=== PATIENT | male | born 1985 | race Caucasian/White ===

== ENCOUNTER → 2016-08-27 | Outpatient (CLI) | payer OTHER ==
[~2016-08-27] MED LIST: AMOX500T PO; BIAX500T PO; DOCU10ELUD PO; EQ O20TA4 PO; MOM30SS PO; MYLASS PO; OMEP20CA3 PO; OXYC-208 PO; REGL10TA6 PO; TYLE325T5 PO; no home meds
--- NOTE | 2016-08-27 12:36 | REP ---
Left ankle series: Four views. History: Acute left ankle pain. Findings: Four views of the left ankle demonstrate overall normal bone mineral density. There is a small bone island in the medial talus. Ankle mortise is intact. No fracture is seen. Impression: No acute bony abnormality. Signed by Shlomo Dickerson MD 08/27/2016 12:45 P
== END ==
LOC: M LRY 11:42
PROVIDERS: ATTEND Physician Assistant
DX: M25.572 Pain in left ankle and joints of left foot (principal)

== ENCOUNTER 2020-04-10 12:29 | Inpatient (IN) | payer OTHER ==
[~2020-04-10] VITALS: Ht 172.7 cm; Wt 62.4 kg
[~2020-04-10 12:29] MED LIST changes: -DOCU10ELUD PO; +DOCU5LIQ PO
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
[2020-04-10] MEDS ORDERED: methylPREDNISolone 125MG 2ML VIAL IV ONE (13:45)
[2020-04-10] MEDS ORDERED: NS 1,000 ML IV ONE (13:45)
[2020-04-10] MEDS: COMBIVENT RESPIMAT 100-20MCG INHALER 4GM INH SCH ×3 (13:55→14:14)
[2020-04-10 14:25] LABS: BASO # 0.1 10^3/uL (0.0-0.2); BASO % 1.2 % (0.0-1.0); EOS # 1.8 10^3/uL (0.0-0.5); EOS % 19.4 % (0.0-3.0); HEMATOCRIT 50.6 % (42.0-52.0); HEMOGLOBIN 17.4 g/dl (13.5-17.5); LYMPH # 1.1 10^3/uL (1.5-5.0); LYMPH % 12.1 % (24.0-44.0); MEAN CORPUSCULAR HEMOGLOBIN 34.2 pg (27.0-33.0); MEAN CORPUSCULAR HGB CONC 34.4 g/dl (32.0-36.5); MEAN CORPUSCULAR VOLUME 99.4 fl (80.0-96.0); MONO # 1.1 10^3/uL (0.0-0.8); MONO % 12.5 % (0.0-5.0); NEUTROPHILS % 54.6 % (36.0-66.0); PLATELET COUNT, AUTOMATED 257 10^3/uL (150-450); RED BLOOD COUNT 5.09 10^6/uL (4.30-6.10); WHITE BLOOD COUNT 9.1 10^3/uL (4.0-10.0)
[2020-04-10 14:29] LABS: VENOUS HCO3 22.7 MEQ/L (23.0-27.0); VENOUS O2 SATURATION 98.3 % (60.0-80.0); VENOUS PARTIAL PRESSURE CO2 38.9 mmHg (38.0-50.0); VENOUS PARTIAL PRESSURE O2 110.1 mmHg (30.0-50.0); VENOUS PH 7.384 UNITS (7.330-7.430); VENOUS STANDARD HCO3 22.9 MEQ/L; VENOUS TOTAL CO2 23.9 MEQ/L (24.0-28.0)
[2020-04-10 14:40] LABS: PROTHROMBIN TIME 13.4 SECONDS (12.5-14.3)
--- NOTE | 2020-04-10 14:41 | REP ---
INDICATION: DYSPNEA/COUGH. COMPARISON: Comparison chest x-ray 10/29/2012. TECHNIQUE: Portable upright AP chest radiograph. FINDINGS: The lungs are well inflated and free of infiltrate. Pleural angles are sharp. Heart size is normal. Pulmonary vasculature is not increased. IMPRESSION: No active disease. <Electronically signed by Eduin Dickerson > 04/10/20 [id number]
[2020-04-10 14:45] LABS: D-DIMER QUANT < 270 ng/ml (<500)
[2020-04-10 14:58] LABS: ALBUMIN 4.4 GM/DL (3.2-5.2); BILIRUBIN,DIRECT 0.2 MG/DL (0.0-0.2); BILIRUBIN,TOTAL 0.5 MG/DL (0.2-1.0); TOTAL PROTEIN 9.1 GM/DL (6.4-8.2)
[2020-04-10] MEDS ORDERED: ISOVUE-370 76% 100ML VIAL As Ordered ONE (15:45)
--- NOTE | 2020-04-10 16:28 | REP ---
INDICATION: sob/low sats. COMPARISON: 08/21/2014 in noncontrast enhanced chest CT TECHNIQUE: CT angiography of the pulmonary arteries after the intravenous administration of 100 cc Isovue 370 FINDINGS: There is excellent visualization of the pulmonary arterial vasculature. No focal filling defects are present that would be considered consistent with acute pulmonary emboli. There is no mediastinal or hilar adenopathy. There are no pleural or pericardial effusions. The imaged upper abdomen and imaged osseous structures are within normal limits. The thoracic aorta is within normal limits. Evaluation the lung shahid shows evidence of mild peribronchiolar wall thickening and a new 1.5 cm sized wedge shaped opacity at the level of the proximal bronchus intermedius and having air bronchograms. This represents a change from the prior CT. Filling defects are seen in multiple bronchioles bilaterally and within the left mainstem bronchus consistent with mucoid debris. IMPRESSION: 1. There is no evidence of a pulmonary embolus or thoracic aortic abnormality. 2. Peribronchiolar wall thickening consistent with reactive airway disease and seen in conjunction with mucoid debris as described above. 3. Right hilar wedge-shaped opacity with air bronchograms having the appearance of a focal area of consolidation possibly secondary to inflammation or atelectasis from mucous plugging. This needs to be correlated clinically with appropriate follow-up. <Electronically signed by Rogelio Blanchard > 04/10/20 0104
--- NOTE | 2020-04-10 18:24 | HPEPDOC ---
General Date of Admission Apr 10, 2020 Date of Service: Apr 10, 2020 Chief Complaint The patient is a 35-year-old male admitted with a reason for visit of dyspnea with thick sputum production Source: Patient History of Present Illness Mr. Erazo is a 35 year old male with remote history of asthma who presents with worsening dyspnea and thick sputum production. He had an exacerbation of asthma as a child, but has not had any problems until 4 months ago. He borrowed his friend's albuterol which initially controlled his symptoms. As of late, he started have worsening dyspnea on exertion. When he went hunting, he could only walk 20ft before feeling dyspnea and having to return. Today, he woke up feeling that he could not breath. He had 6 to 7 puffs of albuterol without effect. He decided to come to the ED to be checked out. While in the ED, work up with significant for eosinophilia. Eosinophils is 19.4%. Absolute eosinophils is 1.8. CTA chest was negative for PE, but demonstrated mucus plugging. He was given 3 rounds of breathing treatments and solumedrol 125mg without good effect. He was saturating around 92 while at room air, and saturated at 88 with ambulation. Admission was called. When I saw the patient, he was in mild distress. He was still very wheezy on auscultation. 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 Home Medications Scheduled PRN Omeprazole (Eq Omeprazole) 20 Mg Tab, 20 MG PO PRN PRN for GI UPSET, (Reported) Allergies Coded Allergies: No Known Allergies (Unverified , 04/10/20) Past Medical History Medical History 1. Asthma 2. Seasonal allergies Surgical History 1. Perforated antral ulcer, s/p ex lap with omental patch repair of perforated ulcer Family History Father: 2 years ago. History of COPD Mother: Alive. Unknown medical history Social History * Smoker: Denies, chew (tobacco) Alcohol: other (Drinks about 3 to 4 beers a day) Drugs: denies A-FIB/CHADSVASC A-FIB History Current/History of A-Fib/PAF?: No Review of Systems Constitutional: Denies: Chills, Fever Eyes: Denies: Vision change ENT: Denies: Sore Throat Skin: Reports: Rash (Dry skin around nose) Pulmonary: Reports: Dyspnea, Cough (Thick white sputum) Cardiovascular: Denies: Chest Pain Gastrointestinal: Denies: Nausea, Abdominal Pain Genitourinary: Denies: Dysuria Hematologic: Denies: Bruising Neurological: Denies: Weakness, Numbness Physical Examination General Exam: Positive: Alert, Cooperative, Mild Distress Eye Exam: Positive: EOMI; Negative: Sclera icteric ENT Exam: Positive: Atraumatic Neck Exam: Positive: Supple Chest Exam: Positive: Wheezing (Severe) Heart Exam: Positive: Tachycardic, Regular Rhythm Abdomen Exam: Positive: Normal bowel sounds, Soft; Negative: Tenderness Extremity Exam: Negative: Edema Neuro Exam: Positive: Cranial Nerves 3-12 NL Psych Exam: Positive: Mental status NL, Mood NL Vital Signs Vital Signs Date Time Temp Pulse Resp B/P (MAP) Pulse Ox O2 Delivery O2 Flow Rate FiO2 04/10/20 17:47 97.5 105 20 134/94 (107) 95 Nasal Cannula 2.0 Laboratory Data Labs 24H Laboratory Tests 2 04/10/20 14:14: Immature Granulocyte % (Auto) 0.2, Neutrophils (%) (Auto) 54.6, Lymphocytes (%) (Auto) 12.1L, Monocytes (%) (Auto) 12.5H, Eosinophils (%) (Auto) 19.4H, Basophils (%) (Auto) 1.2H, Neutrophils # (Auto) 5.0, Lymphocytes # (Auto) 1.1L, Monocytes # (Auto) 1.1H, Eosinophils # (Auto) 1.8H, Basophils # (Auto) 0.1, Nucleated Red Blood Cells % (auto) 0.0, Prothrombin Time 13.4, Prothromb Time International Ratio 1.00, D-Dimer, Quantitative < 270, Blood Gas Bicarbonate Sta ndard 22.9, Venous Blood pH 7.384, Venous Blood Partial Pressure CO2 38.9, Venous Blood Partial Pressure O2 110.1H, Venous Blood Total Carbon Dioxide 23.9L, Venous Blood HCO3 22.7L, Venous Blood Oxygen Saturation 98.3H, Venous Blood Base Excess -2.0, Lactic Acid Level 2.3*H, Total Bilirubin 0.5, Direct Bilirubin 0.2, Aspartate Amino Transf (AST/SGOT) 45H, Alanine Aminotransferase (ALT/SGPT) 46, Alkaline Phosphatase 79, Total Protein 9.1H, Albumin 4.4, Albumin/Globulin Ratio 0.9 1/29/21 14:26: POC Glucose (Misc Panel) 112H, POC Sodium (Misc Panel) 137, POC Potassium (Misc Panel) 4.2, POC Chloride (Misc Panel) 102, POC Total CO2 (Misc Panel) 27.0, POC Blood Urea Nitrogen (Misc Panel 4L, POC Ionized Calcium (Misc Panel) 4.9, POC Creatinine (Misc Panel) 0.8, POC Hematocrit (Misc Panel) 54.0H CBC/BMP Laboratory Tests 04/10/20 14:14 Microbiology Microbiology 04/10/20 Blood Culture, Received Pending 04/10/20 Respiratory Virus Panel (PCR) ([facility]) - Final, Complete 04/10/20 Blood Culture, Received Pending Assessment/Plan Mr. Erazo is a 35 year old male with remote history of asthma who presents with worsening dyspnea and thick sputum production. He was given breathing tr eatment and systemic steroids, but has been resistant to therapy. Work up suggests eosinophilic asthma and mucus plugging. Consulted pulmonology regarding eosinophilic asthma and mucus plugging, recommendations appreciated. Plan / VTE VTE Prophylaxis Ordered?: Yes Plan Plan 1. Eosinophilic asthma -Absolute eosinophils 1.8 (19.4%) -Hypoxic with ambulation -Persistent wheezing despite breathing treatments and steroids -Scheduled duonebs and solumdrol -Pulm consulted for tomorrow, recommendations appreciated 2. Mucus plugging -Demonstrated on CTA chest -Mucinex and acapella -Pulm consulted for tomorrow, recommendations appreciated 3. Alcohol use -Drinks about 3 to 4 beers daily -Thiamine, folic acid, and multivitamin -Monitor 4. DVT ppx -Lovenox CLIFFORD KOO DO Apr 10, 2020 18:24
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
[2020-04-10] MEDS: MULTIVITAMINS/MINERALS THERAP 1 TAB PO SCH (18:59)
[2020-04-10] MEDS: THIAMINE 100 MG TAB PO SCH (18:59)
[2020-04-10] MEDS: FOLIC ACID 1 MG TAB PO SCH (18:59)
[2020-04-10] MEDS: IPRATROPIUM 0.5MG/ALBUTEROL 2.5MG INH SOL UD 3ML (DUONEB) NEB SCH ×2 (20:50→23:19)
[2020-04-10] MEDS: methylPREDNISolone 40MG 1ML VIAL IV SCH (21:36)
[2020-04-10] MEDS: guaiFENesin ER 600 MG TAB PO SCH (21:36)
[2020-04-10 22:30] VITALS: BP 140/90
[2020-04-11] VITALS: BP 136/71
[2020-04-11] MEDS: IPRATROPIUM 0.5MG/ALBUTEROL 2.5MG INH SOL UD 3ML (DUONEB) NEB SCH ×6 (02:31→23:14)
[2020-04-11 04:00] VITALS: BP 140/74
[2020-04-11] MEDS: methylPREDNISolone 40MG 1ML VIAL IV SCH ×3 (05:22→20:44)
[2020-04-11 06:38] LABS: BASO % 0.2 % (0.0-1.0); HEMATOCRIT 45.9 % (42.0-52.0); HEMOGLOBIN 15.6 g/dl (13.5-17.5); LYMPH # 0.6 10^3/uL (1.5-5.0); MONO # 0.8 10^3/uL (0.0-0.8); MONO % 7.4 % (0.0-5.0); NEUTROPHILS # 9.2 10^3/uL (1.5-8.5); NEUTROPHILS % 85.8 % (36.0-66.0); PLATELET COUNT, AUTOMATED 249 10^3/uL (150-450); RED BLOOD COUNT 4.59 10^6/uL (4.30-6.10); WHITE BLOOD COUNT 10.7 10^3/uL (4.0-10.0)
[2020-04-11 07:08] LABS: BLOOD UREA NITROGEN 7 MG/DL (7-18); CALCIUM LEVEL 9.4 MG/DL (8.5-10.1); CARBON DIOXIDE LEVEL 14 MEQ/L (21-32); CHLORIDE LEVEL 102 MEQ/L (98-107); CREATININE FOR GFR 1.02 MG/DL (0.70-1.30); GLOMERULAR FILTRATION RATE > 60.0 (>60); GLUCOSE, FASTING 156 MG/DL (70-100); POTASSIUM SERUM 3.5 MEQ/L (3.5-5.1); SODIUM LEVEL 139 MEQ/L (136-145)
[2020-04-11 08:00] VITALS: BP 126/71
[2020-04-11] MEDS: THIAMINE 100 MG TAB PO SCH (08:54)
[2020-04-11] MEDS: FOLIC ACID 1 MG TAB PO SCH (08:54)
[2020-04-11] MEDS: MULTIVITAMINS/MINERALS THERAP 1 TAB PO SCH (08:54)
[2020-04-11] MEDS: guaiFENesin ER 600 MG TAB PO SCH ×2 (08:54→20:44)
[2020-04-11] MEDS: ENOXAPARIN 40MG/0.4ML SYRINGE (J1650 PER 10MG) SC SCH (08:54)
[2020-04-11] MEDS ORDERED: CHLORASEPTIC SPRAY MT PRN (11:00)
[2020-04-11] MEDS: ADVAIR HFA 230/21MCG INHALER INH SCH ×2 (13:13→19:36)
--- NOTE | 2020-04-11 14:07 | CR ---
PULMONARY CONSULTATION DATE: 04/11/2020 REASON FOR CONSULTATION: HISTORY OF PRESENT ILLNESS: The patient is a 35-year-old male who presented to the Emergency Department with cough and dyspnea. He has had symptoms for the past several months, initially noting cough and subsequently noting cough associated with dyspnea. The symptoms have been slowly progressive over time. He was using a borrowed metered dose inhaler with some effect, however when symptoms became particularly prominent, he presented to the Emergency Department and has been admitted to the hospital. PAST MEDICAL HISTORY: Includes childhood asthma; he grew out of symptoms in his teen years. 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 He does not smoke tobacco, but he does chew tobacco. A dorcas, he is exposed to various animal products, but does not do skinny and small animals. There is no known tuberculosis exposure. He has never had a DVT nor pulmonary embolism. There is no recent foreign travel nor any unusual pet exposures. He partakes in no other hobbies which would expose him to respiratory irritants. He denies recurrent bronchopulmonary infections. PAST SURGICAL HISTORY: Includes a perforated ulcer in 2013, requiring hospitalization. CURRENT MEDICATIONS: None. ALLERGIES: None known. SOCIAL HISTORY: He chews tobacco; does not smoke tobacco. 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 FAMILY HISTORY: Noncontributory. REVIEW OF SYSTEMS: CONSTITUTIONAL: His appetite and weight are good. HEENT: No impairment of visual, smell, hearing or taste. CARDIOVASCULAR: He denies palpitations, orthopnea or paroxysmal nocturnal dyspnea or chest pain. PULMONARY: See above. GI: There is no history of nausea or vomiting. No constipation or diarrhea. He does have the history of perforated ulcer in 2013. : There is no frequency, dysuria or kidney stones. ENDOCRINE: No history of diabetes or thyroid disease. DERMATOLOGY: No psoriasis or skin lesions. HEMATOLOGIC: No easy bruising or bleeding. NEUROLOGIC: No history of stroke or seizure. MUSCULOSKELETAL: No motor weakness. PHYSICAL EXAMINATION: GENERAL: He is awake, alert and oriented. His affect and mood are appropriate. Nutrition and hygiene are good. VITAL SIGNS: Temperature 96.6, pulse rate 92, respirations 18 and unlabored, blood pressure 126/71, saturation of oxygen is 96% on 2 liters of oxygen via nasal cannula. HEENT: His oral and nasal mucosa are pink. His posterior pharynx is not erythematous. There is no stridor over the trachea. No adenopathy in the neck. No jugular venous distention or carotid bruit. There are no supraclavicular nodes palpable. HEART: Heart sounds are irregular, but no appreciable murmur. No lift. No rub. Breath sounds are diminished with coarse expiratory sounds, some focal wheeze in the right mid lung. Chest is otherwise symmetric and moves symmetrically. ABDOMEN: Soft with intact bowel sounds. EXTREMITIES: Show no significant peripheral edema. DIAGNOSTIC STUDIES: Chest imaging shows some atelectasis and evidence consistent with mucous plugging. LABORATORY DATA: On admission, white blood cell count 9.1 with 19.4% eosinophils, eosinophil count 1.8, hemoglobin 17.4, hematocrit 50.6, platelet count 257,000. Electrolytes; sodium 139, potassium 3.5, chloride 102, CO2 14, BUN 7, creatinine 1.02, glucose 156. IMPRESSION: Asthma. RECOMMENDATIONS: 1. The patient is responding well to I.V. steroids. If his response continues, we could change to oral prednisone tomorrow. 2. I will add controller therapy with Advair HFA and instruct the patient in its use. I anticipate he will require controller therapy in intermittent use, so short acting beta-agonist going forward. 3. Patient will need outpatient primary care arranged. He lives in the [facility]. 4. We will follow the patient on an outpatient basis with pulmonary function testing in 4-6 weeks. If he remains steroid responsive and his symptoms persist despite optimal inhaled corticosteroid therapy, he may be a candidate for biological therapy in light of the prominent eosinophilia. Thank you for allowing me to consult in the care of this patient. If there are questions, please do not hesitate to contact me.
--- NOTE | 2020-04-11 18:02 | IPNPDOC ---
Subjective Date Seen The patient was seen on 04/11/20. Subjective Chief Complaint/HPI Mr. Erazo is a 35 year old male with remote history of asthma who presents with worsening dyspnea and thick sputum production. Overnight, he did not sleep well, but was able to cough up two large mucus plugs and some phlegm. This morning, breathing was better. No chest pain or abdominal pain. His throat was sore from the coughing. Otherwise, his wheezing has greatly improved. Discussed the case with pulmonology. Objective Physical Examination General Exam: Positive: Alert, Cooperative, Mild Distress Eye Exam: Positive: EOMI; Negative: Sclera icteric ENT Exam: Positive: Atraumatic Neck Exam: Positive: Supple Chest Exam: Positive: Diminished Heart Exam: Positive: Tachycardic, Regular Rhythm Abdomen Exam: Positive: Normal bowel sounds, Soft; Negative: Tenderness Extremity Exam: Negative: Edema Neuro Exam: Positive: Cranial Nerves 3-12 NL Psych Exam: Positive: Mental status NL, Mood NL Assessment /Plan Assessment Mr. Erazo is a 35 year old male with remote history of asthma who presents with worsening dyspnea and thick sputum production. He has been responding to systemic steroids and breathing treatments. Eosinophilia resolved. Pulmonology following and started controller therapy. If continues to progress well, can consider discharge tomorrow with PO steroids, Advair, and albuterol. Plan/VTE VTE Prophylaxis Ordered?: Yes Plan 1. Eosinophilic asthma -Responded to systemic steroids and eosinophils resolved -Wheezing has greatly improved -Pulmonology following, recommendations appreciated -Advair HFA started -In 4 to 6 weeks, he would need to follow up with pulmonology for PFTs. 2. Mucus plugging -Demonstrated on CTA chest -Continue Mucinex and acapella 3. Alcohol use -Drinks about 3 to 4 beers daily -Thiamine, folic acid, and multivitamin -Monitor 4. DVT ppx -Lovenox Disposition: If continues to respond to steroids, can anticipate discharge tomorrow morning with PO steroids VS, I&O, 24H, Fishbone Vital Signs/I&O Vital Signs Date Time Temp Pulse Resp B/P (MAP) Pulse Ox O2 Delivery O2 Flow Rate FiO2 04/11/20 08:00 96.6 92 18 126/71 (89) 96 Nasal Cannula 2.0 I&O- Last 24 Hours up to 6 AM 04/11/20 05:59 Intake Total 1750 ml Output Total 1150 ml Balance 600 ml Laboratory Data 24H LABS Laboratory Tests 2 04/10/20 18:40: Lactic Acid Followup at 4 Hours 2.2*H, Procalcitonin <0.05 04/11/20 06:20: Immature Granulocyte % (Auto) 0.6, Neutrophils (%) (Auto) 85.8H, Lymphocytes (%) (Auto) 6.0L, Monocytes (%) (Auto) 7.4H, Eosinophils (%) (Auto) 0.0, Basophils (%) (Auto) 0.2, Neutrophils # (Auto) 9.2H, Lymphocytes # (Auto) 0.6L, Monocytes # (Auto) 0.8, Eosinophils # (Auto) 0.0, Basophils # (Auto) 0.0, Nucleated Red Blood Cells % (auto) 0.0, Anion Gap 23H, Glomerular Filtration Rate > 60.0, Calcium Level 9.4 CBC/BMP Laboratory Tests 04/11/20 06:20 Microbiology Microbiology 04/10/20 Blood Culture - Preliminary, Resulted No growth after 24 hours . All specim... 04/10/20 Respiratory Virus Panel (PCR) ([facility]) - Final, Complete 04/10/20 Blood Culture - Preliminary, Resulted No growth after 24 hours . All specim... CLIFFORD KOO DO Apr 11, 2020 18:02
[2020-04-11 20:00] VITALS: BP 119/64
[2020-04-12] VITALS: BP 125/88
[2020-04-12] MEDS: IPRATROPIUM 0.5MG/ALBUTEROL 2.5MG INH SOL UD 3ML (DUONEB) NEB SCH ×3 (02:39→11:39)
[2020-04-12 04:00] VITALS: BP 110/54
[2020-04-12] MEDS: methylPREDNISolone 40MG 1ML VIAL IV SCH (06:12)
[2020-04-12 06:31] LABS: BASO % 0.1 % (0.0-1.0); HEMOGLOBIN 14.6 g/dl (13.5-17.5); LYMPH # 0.7 10^3/uL (1.5-5.0); LYMPH % 4.8 % (24.0-44.0); MEAN CORPUSCULAR HEMOGLOBIN 33.7 pg (27.0-33.0); MEAN CORPUSCULAR HGB CONC 33.2 g/dl (32.0-36.5); MEAN CORPUSCULAR VOLUME 101.6 fl (80.0-96.0); MONO # 1.3 10^3/uL (0.0-0.8); MONO % 8.4 % (0.0-5.0); NEUTROPHILS % 86.1 % (36.0-66.0); PLATELET COUNT, AUTOMATED 233 10^3/uL (150-450); RED BLOOD COUNT 4.33 10^6/uL (4.30-6.10); WHITE BLOOD COUNT 15.2 10^3/uL (4.0-10.0)
[2020-04-12 06:53] LABS: BLOOD UREA NITROGEN 11 MG/DL (7-18); CALCIUM LEVEL 9.2 MG/DL (8.5-10.1); CARBON DIOXIDE LEVEL 26 MEQ/L (21-32); CHLORIDE LEVEL 105 MEQ/L (98-107); CREATININE FOR GFR 1.07 MG/DL (0.70-1.30); GLOMERULAR FILTRATION RATE > 60.0 (>60); GLUCOSE, FASTING 122 MG/DL (70-100); POTASSIUM SERUM 4.1 MEQ/L (3.5-5.1); SODIUM LEVEL 139 MEQ/L (136-145)
[2020-04-12 08:00] VITALS: BP 116/57
[2020-04-12] MEDS: FOLIC ACID 1 MG TAB PO SCH (08:34)
[2020-04-12] MEDS: MULTIVITAMINS/MINERALS THERAP 1 TAB PO SCH (08:34)
[2020-04-12] MEDS: guaiFENesin ER 600 MG TAB PO SCH (08:34)
[2020-04-12] MEDS: THIAMINE 100 MG TAB PO SCH (08:34)
[2020-04-12] MEDS: ENOXAPARIN 40MG/0.4ML SYRINGE (J1650 PER 10MG) SC SCH (08:35)
[2020-04-12] MEDS: ADVAIR HFA 230/21MCG INHALER INH SCH (08:43)
[2020-04-12] MEDS ORDERED: PRED20TA PO (09:40)
[2020-04-12] MEDS ORDERED: ADVA230A INH (09:40)
[2020-04-12] MEDS ORDERED: CHLORSP MT (09:40)
[2020-04-12] MEDS ORDERED: MUCI600T31 PO (09:40)
[2020-04-12] MEDS ORDERED: ADV250INH INH (11:12)
[2020-04-12 11:52] VITALS: BP 123/71
--- NOTE | 2020-04-12 23:37 | DS.PDOC ---
Discharge Summary General Date of Admission Apr 10, 2020 at 17:44 Date of Discharge Apr 12, 2020 Attending Physician: CLIFFORD KOO DO Specialist/Consultants [facility], Dr. Arenas Discharge Summary PROCEDURES PERFORMED DURING STAY: None ADMITTING DIAGNOSES: 1. Eosinophilic asthma 2. Mucus plugging 3. Exertional hypoxia 4. Alcohol use DISCHARGE DIAGNOSES: 1. Eosinophilic asthma 2. Mucus plugging 3. Exertional hypoxia 4. Alcohol use COMPLICATIONS/CHIEF COMPLAINT: Eosinophilic Asthma,Mucus Plugging Of Bronchi.. HISTORY OF PRESENT ILLNESS: Mr. Erazo is a 35 year old male with remote history of asthma who presents with worsening dyspnea and thick sputum production. He had an exacerbation of asthma as a child, but has not had any problems until 4 months ago. He borrowed his friend's albuterol which initially controlled his symptoms. As of late, he started have worsening dyspnea on exertion. When he went hunting, he could only walk 20ft before feeling dyspnea and having to return. Today, he woke up feeling that he could not breath. He had 6 to 7 puffs of albuterol without effect. He decided to come to the ED to be checked out. While in the ED, work up with significant for eosinophilia. Eosinophils is 19.4%. Absolute eosinophils is 1.8. CTA chest was negative for PE, but demonstrated mucus plugging. He was given 3 rounds of breathing treatments and solumedrol 125mg without good effect. He was saturating around 92 while at room air, and saturated at 88 with ambulation. Admission was called. When I saw the patient, he was in mild distress. He was still very wheezy on auscultation. Patient will be admitted for serves eosinophilic asthma resistant to therapy, exertional hypoxia, and mucus plugging. HOSPITAL COURSE: Patient was put solumedrol and duonebs scheduled. He was given an acapella for the mucus plugging. He did well overnight. The following morning, his wheezing improved, but had diminished breath sounds. He was able to cough out many mucus plugs. His eosinophilia had resolved. Pulmonary recommended adding on controller therapy (Advair) and having patient follow up in 3 to 4 weeks for PFT. The next day, patient felt well. Lungs sounded clear with good air movement. Patient felt ready for home and was subsequently discharged home with Advair, albuterol, and steroid taper. DISCHARGE MEDICATIONS: Please see below. ALLERGIES: Please see below. PHYSICAL EXAMINATION ON DISCHARGE: VITAL SIGNS: Please see below. GENERAL: Comfortable, in no apparent distress HEENT: Head normocephalic, atraumatic NECK: Supple CARDIOVASCULAR EXAMINATION: Regular rate and rhythm RESPIRATORY EXAMINATION: Lungs clear to auscultation bilaterally ABDOMINAL EXAMINATION: Soft, non-tender, normal bowel sounds EXTREMITIES: No pitting edema bilaterally SKIN: Warm and dry NEUROLOGICAL EXAMINATION: CN 3-12 grossly intact PSYCHIATRIC EXAMINATION: Normal mood and affect LABORATORY DATA: Please see below. IMAGING: CT angio chest 1. There is no evidence of a pulmonary embolus or thoracic aortic abnormality. 2. Peribronchiolar wall thickening consistent with reactive airway disease and seen in conjunction with mucoid debris as described above. 3. Right hilar wedge-shaped opacity with air bronchograms having the appearance of a focal area of consolidation possibly secondary to inflammation or atelectasis from mucous plugging. This needs to be correlated clinically with appropriate follow-up. PROGNOSIS: Good ACTIVITY: As tolerated. DIET: As tolerated DISCHARGE PLAN: Home DISPOSITION: Home, Self-Care. DISCHARGE INSTRUCTIONS: 1. Follow up with PCP within 5 days 2. Follow up with pulmonology in 3 to 4 week for PFTs DISCHARGE CONDITION: Stable. Total time spent on discharge planning, discharge summary, and medication reconciliation: 40 minutes Vital Signs/I&Os Vital Signs Date Time Temp Pulse Resp B/P (MAP) Pulse Ox O2 Delivery O2 Flow Rate FiO2 04/12/20 11:52 97.5 97 18 123/71 (88) 89 Room Air 04/11/20 08:00 2.0 I&O- Last 24 Hours up to 6 AM 04/12/20 06:00 Intake Total 1620 ml Output Total 2000 ml Balance -380 ml Laboratory Data Labs 24H Laboratory Tests 2 04/12/20 06:15: Immature Granulocyte % (Auto) 0.6, Neutrophils (%) (Auto) 86.1H, Lymphocytes (%) (Auto) 4.8L, Monocytes (%) (Auto) 8.4H, Eosinophils (%) (Auto) 0.0, Basophils (%) (Auto) 0.1, Neutrophils # (Auto) 13.0H, Lymphocytes # (Auto) 0.7L, Monocytes # (Auto) 1.3H, Eosinophils # (Auto) 0.0, Basophils # (Auto) 0.0, Nucleated Red Blood Cells % (auto) 0.0, Anion Gap 8, Glomerular Filtration Rate > 60.0, Calcium Level 9.2 CBC/BMP Laboratory Tests 04/12/20 06:15 Microbiology Microbiology 04/10/20 Blood Culture - Preliminary, Resulted No Growth after 48 hours. All Specime... 04/10/20 Respiratory Virus Panel (PCR) ([facility]) - Final, Complete 04/10/20 Blood Culture - Preliminary, Resulted No Growth after 48 hours. All Specime... Discharge Medications Scheduled Guaifenesin (Mucinex) 600 Mg Tab.er.12h, 600 MG PO BID Prednisone (Prednisone) 20 Mg Tablet, 20 MG PO ASDIRECTED Take 3 tablets for 3 days, then take 2 tablets for 3 days, then take 1 tablet for 3 days, then stop Salmeterol/Fluticasone (Advair 250-50 Diskus) 1 Each Blst.w.dev, 1 PUFF INH BID Scheduled PRN Phenol (Sore Throat Colmar) 177 Ml [place], 1 SPRAY MT Q2HP PRN for SORE THROAT Allergies Coded Allergies: No Known Allergies (Unverified , 04/10/20) CLIFFORD KOO DO Apr 12, 2020 23:37
== END 2020-04-12 12:29 | disposition home or self-care (01) | DRG 142 ==
LOC: M ED 12:29 → M ED INP 17:44 → M PCU 22:25
PROVIDERS: ADMIT Internal Medicine; ATTEND Internal Medicine
DX: J82.83 Eosinophilic asthma (principal); J98.09 Other diseases of bronchus, not elsewhere classified; F10.10 Alcohol abuse, uncomplicated; Z79.899 Other long term (current) drug therapy